=== PATIENT | male | born 1995 | race Caucasian/White ===

== ENCOUNTER → 2020-01-11 11:59 | Outpatient (BNVA) | payer OTHER, SELFPAY | PROVIDERS: PCP Nurse Practitioner Family; Visit Provider Nurse Practitioner Family | DX: Z20.828 Contact with and (suspected) exposure to other viral communicable diseases (principal) | CPT/HCPCS: 87635 ==

== ENCOUNTER 2020-10-16 13:15 | Emergency (ER) | payer SELFPAY ==
[2020-10-16 14:21] VITALS: BP 112/80; PULSE 81; RESP 16; TEMP 36.7; O2SAT 99; BMI 24.4
== END 2020-10-16 18:26 ==
LOC: ER 13:23
PROVIDERS: PCP Nurse Practitioner Family
DX: Z53.21 Procedure and treatment not carried out due to patient leaving prior to being seen by health care provider (principal)

== ENCOUNTER → 2021-05-30 00:01 | Outpatient (BNVA) | payer OTHER, SELFPAY | PROVIDERS: PCP Nurse Practitioner Family; Visit Provider Nurse Practitioner Family | DX: D64.9 Anemia, unspecified (principal); Z13.6 Encounter for screening for cardiovascular disorders; R53.83 Other fatigue; Z79.899 Other long term (current) drug therapy | CPT/HCPCS: 80053; 80061; 81003; 83036; 83921; 84443; 85025 ==

== ENCOUNTER 2022-07-03 08:06 | Outpatient (CLI) | payer OTHER, SELFPAY ==
--- NOTE | 2022-07-03 08:19 | US_ITS ---
WS: [id number] ULTRASOUND SOFT TISSUES RIGHT neck. HISTORY: LOCALIZED ENLARGED LYMPH NODES COMPARISON: None available. TECHNIQUE: 2-D and color Doppler imaging is submitted. Palpable area on the RIGHT neck corresponds to several adjacent lymph nodes. Confluently this cluster measures 4.2 cm. These do not appear particularly abnormal. The fatty brittaney remain. These are ovoid a nd normal vascularity. US/US soft tissue head neck [id number] IMPRESSION: Several mildly prominent lymph nodes in the RIGHT cervical chain. Normal appear ance of the hilum. These lymph nodes do not appear abnormal.
== END 2022-07-03 08:07 | disposition home or self-care (01) ==
LOC: RAD 08:10
PROVIDERS: Visit Provider Otolaryngology
DX: R59.0 Localized enlarged lymph nodes (principal)
CPT/HCPCS: 76536

== ENCOUNTER → 2022-08-14 12:11 | Outpatient (BNVA) | payer OTHER, SELFPAY | PROVIDERS: Referring Provider Student in an Organized Health Care Education/Training Program; Visit Provider Student in an Organized Health Care Education/Training Program | DX: M65.4 Radial styloid tenosynovitis [de Quervain] (principal); M25.532 Pain in left wrist | CPT/HCPCS: 73110 ==

== ENCOUNTER 2023-08-06 14:47 | Emergency (ER) | payer OTHER, SELFPAY ==
[2023-08-06 14:54] VITALS: BP 133/77; PULSE 116; RESP 15; O2SAT 100
--- NOTE | 2023-08-06 15:04 | XR_ITS ---
WS: [id number] Exam: XR lumbar spine 2-3V* [id number] Date/Time of Exam: 08/06/2023 3:04 PM Reason For Exam: back pain There is a compression fracture of the upper plate of L4 with about 40% loss of vertebral height. The re may be some posterior displacement. This appears to be an old fracture. There is bridging of the L 4 with pedicle screws and posterior rods positioned in L3 and L5. No other fractures. Is mild degener ative narrowing of the L5-S1 disc. There appears to be sacralization of L5. Slight levoscoliosis. IMPRESSION: 1. Probable old compression fracture of L4 with about 40% loss of vertebral height and some posterior displacement. Pedicle screws and posterior rods bridge the spine from L3-L5. The fusion appears to b e intact without evidence of hardware failure.
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
[2023-08-06] MEDS: HYDROcodone-acetaminophen 5-325 mg Tablet 1 TAB PO (16:06)
[2023-08-06 16:07] VITALS: BP 113/75; PULSE 82; O2SAT 99
[2023-08-06 16:20] VITALS: BP 127/77; PULSE 96; O2SAT 98
== END 2023-08-06 16:21 | disposition home or self-care (01) ==
PROVIDERS: Emergency Provider Emergency Medicine; PCP Nurse Practitioner Family
DX: S39.012A Strain of muscle, fascia and tendon of lower back, initial encounter (principal); X50.0XXA Overexertion from strenuous movement or load, initial encounter
CPT/HCPCS: 72100; 99283

== ENCOUNTER 2023-10-28 22:25 | Emergency (ER) | payer OTHER, SELFPAY ==
[2023-10-28 22:55] VITALS: BP 141/92; PULSE 110; RESP 14; TEMP 36.6; O2SAT 98; BMI 23.7
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
[2023-10-28] MEDS: ketorolac 30 mg/mL INJ IM (23:35)
[2023-10-28] MEDS: LORazepam 2 mg/mL INJ 1 mL 1 MG IM (23:37)
== END 2023-10-28 23:50 | disposition home or self-care (01) ==
PROVIDERS: Emergency Provider Nurse Practitioner Family; PCP Electrodiagnostic Medicine
DX: M54.50 Low back pain, unspecified (principal); G89.29 Other chronic pain; Z79.899 Other long term (current) drug therapy
CPT/HCPCS: 96372; 99284; J1885; J2060